=== PATIENT | female | born 2005 | race Hispanic/Latino ===

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

== ENCOUNTER 2023-07-17 16:26 | Emergency (ER) | payer OTHER ==
[~2023-07-17] VITALS: Ht 162.6 cm; Wt 95.3 kg
[2023-07-17 17:11] LABS: SARS-CoV-2, RNA, NAAT POSITIVE SARS CoV-2 (NEGATIVE)
[2023-07-17 17:12] LABS: RAPID GROUP A STREP positive (NEGATIVE)
[2023-07-17 17:16] LABS: INFLUENZA TYPE A Negative For Type A (NEGATIVE); INFLUENZA TYPE B Negative For Type B (NEGATIVE)
[2023-07-17] MEDS ORDERED: AMOX-426 PO (17:19)
[2023-07-17] MEDS: IBUPROFEN 800 MG TAB PO ONE (20:02)
[2023-07-17] MEDS: AMOX/CLAV 875/125MG TAB PO ONE (20:02)
[2023-07-17 20:09] VITALS: BP 121/71; PULSE 100; RESP 18; O2SAT 100
== END 2023-07-17 20:11 | disposition home or self-care (01) ==
LOC: EDH 16:26
DX: U07.1 COVID-19 (principal); J02.9 Acute pharyngitis, unspecified
CPT/HCPCS: 87635; 87804; 87880